=== PATIENT | female | born 1985 ===

== ENCOUNTER 2021-08-18 09:46 | Emergency (ER) | payer MEDICAID ==
--- NOTE | 2021-08-18 10:22 | Emergency Department Report ---
ED HPI - General Chief complaint: Vaginal Bleeding Stated complaint: POSS MISCARRIAGE Time Seen by Provider: 08/18/21 10:21 Source: patient Mode of arrival: Ambulatory Limitations: No Limitations - History of Present Illness Initial comments: 36 YO COMES TO ER WITH CONCERNS SHE IS PREG. SHE FIRST SAID HER LAST PERIOD WAS 11-16 BUT THEN ON D/C SHE STATES SHE HAS HAD PERIODS ALL ALONG. DENIES VAG BLEEDING OR PAIN. AMBULATORY NON ILL AND NONTOXIC APPEARING Associated symptoms: denies other symptoms. denies: nausea/vomiting, vaginal bleeding, vaginal discharge, abdominal pain, dysuria, headache, vision changes, malaise, dysparuenia, rash, seizure, shortness of breath, syncope, weakness Vaginal bleeding: none Pre- care: none - Related Data Allergies Allergy/AdvReac Type Severity Reaction Status Date / Time No Known Allergies Allergy Verified 08/18/21 10:21 ED Review of Systems ROS: Stated complaint: POSS MISCARRIAGE Other details as noted in HPI Comment: All other systems reviewed and negative ED Past Medical Hx - Past Medical History Previous Medical History?: No - Surgical History Past Surgical History?: No ED Physical Exam - General Limitations: No Limitations General appearance: alert, in no apparent distress - Head Head exam: Present: atraumatic, normocephalic - Eye Eye exam: Present: normal appearance - ENT ENT exam: Present: mucous membranes moist - Neck Neck exam: Present: normal inspection - Respiratory Respiratory exam: Present: normal lung sounds bilaterally. Absent: respiratory distress - Cardiovascular Cardiovascular Exam: Present: regular rate, normal rhythm. Absent: systolic murmur, diastolic murmur, rubs, gallop - GI/Abdominal GI/Abdominal exam: Present: soft, normal bowel sounds - Extremities Exam Extremities exam: Present: normal inspection - Back Exam Back exam: Present: normal inspection - Neurological Exam Neurological exam: Present: alert, oriented X3 - Psychiatric Psychiatric exam: Present: normal affect, normal mood - Skin Skin exam: Present: warm, dry, intact, normal color. Absent: rash ED Course Vital Signs 08/18/21 10:18 Temperature 98.5 F Pulse Rate 93 H Respiratory 14 Rate Blood Pressure 116/67 O2 Sat by Pulse 100 Oximetry ED Medical Decision Making - Lab Data Result diagrams: 08/18/21 10:43 08/18/21 10:43 - Radiology Data Radiology results: report reviewed, image reviewed - Medical Decision Making Lab Results 08/18/21 08/18/21 08/18/21 Range/Units 10:43 10:43 10:43 WBC 7.7 (4.5-11.0) K/mm3 RBC 4.40 (3.65-5.03) M/mm3 Hgb 14.0 (10.1-14.3) gm/dl Hct 42.1 (30.3-42.9) % MCV 96 (79-97) fl MCH 32 (28-32) pg MCHC 33 (30-34) % RDW 14.9 (13.2-15.2) % Plt Count 299 (140-440) K/mm3 Lymph % (Auto) 14.5 (13.4-35.0) % Stevens % (Auto) 4.6 (0.0-7.3) % Eos % (Auto) 3.5 (0.0-4.3) % Baso % (Auto) 0.6 (0.0-1.8) % Lymph # (Auto) 1.1 L (1.2-5.4) K/mm3 Stevens # (Auto) 0.4 (0.0-0.8) K/mm3 Eos # (Auto) 0.3 (0.0-0.4) K/mm3 Baso # (Auto) 0.0 (0.0-0.1) K/mm3 Seg Neutrophils % 76.8 H (40.0-70.0) % Seg Neutrophils # 6.0 (1.8-7.7) K/mm3 Sodium 138 (137-145) mmol/L Potassium 4.2 (3.6-5.0) mmol/L Chloride 102.2 (98-107) mmol/L Carbon Dioxide 22 (22-30) mmol/L Anion Gap 18 mmol/L BUN 6 L (7-17) mg/dL Creatinine 0.7 (0.6-1.2) mg/dL Estimated GFR > 60 ml/min BUN/Creatinine Ratio 9 % Glucose 57 L (65-100) mg/dL Calcium 9.4 (8.4-10.2) mg/dL HCG, Quant 47244 H (0-4) mIU/mL Blood Type Ord Rhogam Gestat Weeks WEEKS 08/18/21 Range/Units Unknown WBC (4.5-11.0) K/mm3 RBC (3.65-5.03) M/mm3 Hgb (10.1-14.3) gm/dl Hct (30.3-42.9) % MCV (79-97) fl MCH (28-32) pg MCHC (30-34) % RDW (13.2-15.2) % Plt Count (140-440) K/mm3 Lymph % (Auto) (13.4-35.0) % Stevens % (Auto) (0.0-7.3) % Eos % (Auto) (0.0-4.3) % Baso % (Auto) (0.0-1.8) % Lymph # (Auto) (1.2-5.4) K/mm3 Stevens # (Auto) (0.0-0.8) K/mm3 Eos # (Auto) (0.0-0.4) K/mm3 Baso # (Auto) (0.0-0.1) K/mm3 Seg Neutrophils % (40.0-70.0) % Seg Neutrophils # (1.8-7.7) K/mm3 Sodium (137-145) mmol/L Potassium (3.6-5.0) mmol/L Chloride (98-107) mmol/L Carbon Dioxide (22-30) mmol/L Anion Gap mmol/L BUN (7-17) mg/dL Creatinine (0.6-1.2) mg/dL Estimated GFR ml/min BUN/Creatinine Ratio % Glucose (65-100) mg/dL Calcium (8.4-10.2) mg/dL HCG, Quant (0-4) mIU/mL Blood Type O POSITIVE Ord Rhogam Gestat Weeks Rh pos WEEKS Vital Signs 08/18/21 10:18 Temperature 98.5 F Pulse Rate 93 H Respiratory 14 Rate Blood Pressure 116/67 O2 Sat by Pulse 100 Oximetry LABS NOTED O POS US NOTED DC HOME WITH DC PLAN OF CARE INCLUDING OBGYN REFERRAL. SHE VERBALIZES UNDERSTANDING OF PLAN OF CARE - Differential Diagnosis RO PREG Critical care attestation.: If time is entered above; I have spent that time in minutes in the direct care of this critically ill patient, excluding procedure time. ED Disposition Clinical Impression: Qualifiers: Weeks of gestation: 17 weeks Qualified Code(s): Z3A.17 - 17 weeks gestation of Disposition: 01 HOME / SELF CARE / HOMELESS Is pt being admited?: No Does the pt Need Aspirin: No Condition: Stable Instructions: Second Trimester of , [id number] Additional Instructions: FOLLOW UP WITH OBGYN BULL REFERRAL BELOW TYLENOL FOR PAIN AVOID CIG SMOKING/DRUGS Referrals: PRIMARY CARE, [Primary Care Provider] - 3-5 Days MALIA MATSON MD [Staff Physician] - 3-5 Days Time of Disposition: 15:03
--- NOTE | 2021-08-18 12:12 | Ultrasound Report ---
ULTRASOUND OBSTETRIC COMPLETE INDICATION / CLINICAL INFORMATION: Vaginal bleeding. Clinical Gestational Age (GA) in weeks.days: 11.6 TECHNIQUE: Transabdominal. COMPARISON: None available. FINDINGS: NUMBER: Single PRESENTATION: cephalic PLACENTA: Anterior, grade 0 and free of the os. MATERNAL ADNEXA: No significant abnormality. AMNIOTIC FLUID VOLUME: Qualitatively normal although NAHED was not measured. ANATOMY: organs (including the bladder, kidneys, heart, umbilical cord, diaphragm, cord insertion, spine and intracranial structures) are visualized and show no significant abnormality with the following e xception(s): The stomach is not clearly demonstrated and may be decompressed. Consider follow-up. MEASUREMENTS: - Biparietal Diameter = 3.7 cm = 17.1 weeks.days - Head Circumference = 13.4 cm = 16.6 weeks.days - Abdominal Circumference = 11.1 cm = 17.0 weeks.days - Femur Length = 2.3 cm = 17.0 weeks.days - Heart Rate (beats per minute): 165 ADDITIONAL FINDINGS: The cervix is closed and measures 3.1 cm. ESTIMATED WEIGHT (if calculated): 176 g +/- 26 g AVERAGE ULTRASOUND AGE (AUA) in weeks.days = 17.0 IMPRESSION: 1. Single intrauterine with AUA of 17.0 weeks.days 2. No acute abnormality is appreciated. 3. The stomach is not clearly demonstrated on this exam. Consider follow-up. Signer Name: Deven Lindsey Jr, MD Signed: 08/18/2021 12:08 PM Workstation Name: [id number]
[2021-08-18 14:06] LABS: Basophils % (Auto) 0.6 % (0.0-1.8); Eosinophils # (Auto) 0.3 K/mm3 (0.0-0.4); Eosinophils % (Auto) 3.5 % (0.0-4.3); Hematocrit 42.1 % (30.3-42.9); Lymphocytes # (Auto) 1.1 K/mm3 (1.2-5.4); Lymphocytes % (Auto) 14.5 % (13.4-35.0); Mean Corpuscular HGB Conc 33 % (30-34); Mean Corpuscular Volume 96 fl (79-97); Monocytes # (Auto) 0.4 K/mm3 (0.0-0.8); Monocytes % (Auto) 4.6 % (0.0-7.3); Platelet Count 299 K/mm3 (140-440); Red Cell Distribution Width 14.9 % (13.2-15.2)
[2021-08-18 14:24] LABS: Blood Urea Nitrogen 6 mg/dL (7-17); Calcium 9.4 mg/dL (8.4-10.2); Hemolysis Index 1
[2021-08-18 14:29] LABS: BUN/Creatinine Ratio 9
[2021-08-18 15:17] VITALS: BP 126/60
== END 2021-08-18 15:18 | disposition home or self-care (01) ==
LOC: ED 09:46
DX: O46.92 Antepartum hemorrhage, unspecified, second trimester (principal); Z3A.17 17 weeks gestation of pregnancy
CPT/HCPCS: 36415; 76805; 80048; 84702; 85025; 86900; 86901; 99284